=== PATIENT | male | born 1990 | race Caucasian/White ===

== ENCOUNTER 2018-11-28 19:20 | Inpatient (IN) | payer MEDICAID ==
[~2018-11-28] VITALS: Ht 180.3 cm; Wt 90.7 kg
[2018-11-28 19:26] VITALS: BP_SYST 160
[2018-11-28] MEDS ORDERED: LIDOCAINE/PRILOCAINE 5 GM CREAM (EMLA) TP ONE (19:45)
[2018-11-28] MEDS ORDERED: IBUPROFEN 800 MG TABLET PO ONE (19:45)
[2018-11-28] MEDS ORDERED: LIDOCAINE 1% 10 MG/ML, 20 ML MDV INJ ONE (19:45)
[2018-11-28] MEDS ORDERED: SODIUM BICARBONATE 8.4% VIAL 50 MEQ/50 ML VIAL INJ ONE (19:45)
[2018-11-28] MEDS ORDERED: VANCOMYCIN HCL 1,000 MG in NS 250 ML IV ONE (20:30)
[2018-11-28] MEDS ORDERED: VANCOMYCIN HCL 1000 MG/VIAL IV ONE (21:15)
[2018-11-28 21:23] LABS: BASOPHILS % (AUTO) 0.6 % (0.0-2.0); EOSINOPHILS # (AUTO) 0.3 K/uL (0.0-0.4); EOSINOPHILS % (AUTO) 3.4 % (0.0-4.0); HEMATOCRIT 39.4 % (36-54); HEMOGLOBIN 13.3 g/dL (14.0-18.0); LYMPHOCYTES # (AUTO) 1.6 K/uL (1.0-5.5); LYMPHOCYTES % (AUTO) 20.8 % (20.5-51.5); MEAN CORPUSCULAR HEMOGLOBIN 28 pg (27-31); MEAN CORPUSCULAR HGB CONC 34 % (32-36); MEAN CORPUSCULAR VOLUME 84 fL (79.0-98.0); MONOCYTES # (AUTO) 0.8 K/uL (0.0-1.0); MONOCYTES % (AUTO) 9.6 % (1.7-9.3); NEUTROPHILS # (AUTO) 5.2 K/uL (1.8-7.7); NEUTROPHILS % (AUTO) 65.6 % (40.0-70.0); PLATELET COUNT (AUTO) 315 K/uL (130-430); RED BLOOD CELL COUNT(AUTO) 4.71 MIL/uL (4.2-6.2); RED CELL DISTRIBUTION WIDTH 11.6 % (9.0-15.0); WHITE BLOOD COUNT (AUTO) 7.9 K/uL (4.8-10.8)
[2018-11-28 21:29] LABS: CALCIUM 9.5 mg/dL (8.4-11.0); CREATININE 1.47 mg/dL (0.55-1.30); POTASSIUM 3.8 mmol/L (3.5-5.1)
[2018-11-28] MEDS ORDERED: PIPERACILLIN/TAZO 3.375 GM in NS 50 ML IV ONE (21:30)
[2018-11-28 21:35] LABS: ALBUMIN 3.3 g/dL (3.4-4.8); TOTAL BILIRUBIN 0.6 mg/dL (0.0-1.0)
[2018-11-28] MEDS ORDERED: PIPERACILLIN/TAZOBACTAM 3.375 GM/VIAL (ZOSYN) IV ONE (21:56)
[2018-11-28] MEDS ORDERED: IBUPROFEN 400 MG TABLET PO PRN (22:00)
[2018-11-28] MEDS ORDERED: ACETAMINOPHEN 325 MG TABLET PO PRN (22:00)
[2018-11-28] MEDS ORDERED: cloNIDine HCL 0.1 MG TABLET PO PRN (22:00)
[2018-11-28] MEDS ORDERED: HYDROcodone/ACETAMIN 5-325 MG TAB (NORCO/ VICODIN) PO PRN (22:00)
[2018-11-28 22:46] VITALS: BP_SYST 158
[2018-11-28] MEDS ORDERED: CEFAZOLIN 1 GM IVPB PREMIX 50 ML IV ONE (22:59)
[2018-11-28] MEDS ORDERED: CLINDAMYCIN 600 mg/50mL D5W 100 ML IV ONE (23:00)
[2018-11-28] MEDS: FAMOTIDINE 20 MG TABLET PO SCH (23:37)
[2018-11-28] MEDS: HYDROcodone/ACETAMIN 10-325 MG TAB PO PRN (23:38)
[2018-11-28] MEDS: CLINDAMYCIN 600 mg/50mL D5W 50 ML IV SCH (23:38)
[2018-11-28] MEDS: CEFAZOLIN 1 GM IVPB PREMIX 50 ML IV SCH (23:39)
[2018-11-29 01:07] VITALS: BP_SYST 155
[2018-11-29] MEDS ORDERED: CEFAZOLIN 1 GM IVPB PREMIX 50 ML IV ONE (02:49)
[2018-11-29] MEDS: CEFAZOLIN 1 GM IVPB PREMIX 50 ML IV SCH ×3 (06:03→22:08)
[2018-11-29] MEDS: CLINDAMYCIN 600 mg/50mL D5W 50 ML IV SCH ×4 (06:04→23:38)
[2018-11-29 08:00] VITALS: BP_SYST 121
[2018-11-29] MEDS: LACTOBACILLUS RHAMNOSUS GG 1 CAP CAPSULE PO SCH ×2 (08:58→20:26)
[2018-11-29] MEDS: FAMOTIDINE 20 MG TABLET PO SCH ×2 (08:58→20:26)
[2018-11-29] MEDS: HYDROcodone/ACETAMIN 10-325 MG TAB PO PRN ×3 (08:58→20:27)
[2018-11-29 11:23] VITALS: BP_SYST 112
[2018-11-29 15:42] VITALS: BP_SYST 120
[2018-11-29 20:00] VITALS: BP_SYST 141
[2018-11-30 01:08] VITALS: BP_SYST 110
[2018-11-30] MEDS: CEFAZOLIN 1 GM IVPB PREMIX 50 ML IV SCH ×3 (05:33→21:44)
[2018-11-30] MEDS: CLINDAMYCIN 600 mg/50mL D5W 50 ML IV SCH ×3 (06:25→17:38)
[2018-11-30 07:11] LABS: BASOPHILS # (AUTO) 0.1 K/uL (0.0-0.2); EOSINOPHILS # (AUTO) 0.4 K/uL (0.0-0.4); EOSINOPHILS % (AUTO) 5.3 % (0.0-4.0); HEMATOCRIT 39.8 % (36-54); HEMOGLOBIN 13.1 g/dL (14.0-18.0); LYMPHOCYTES # (AUTO) 2.8 K/uL (1.0-5.5); LYMPHOCYTES % (AUTO) 39.5 % (20.5-51.5); MEAN CORPUSCULAR HEMOGLOBIN 28 pg (27-31); MEAN CORPUSCULAR HGB CONC 33 % (32-36); MEAN CORPUSCULAR VOLUME 84 fL (79.0-98.0); MONOCYTES # (AUTO) 0.7 K/uL (0.0-1.0); MONOCYTES % (AUTO) 9.5 % (1.7-9.3); NEUTROPHILS # (AUTO) 3.1 K/uL (1.8-7.7); NEUTROPHILS % (AUTO) 44.7 % (40.0-70.0); PLATELET COUNT (AUTO) 347 K/uL (130-430); RED BLOOD CELL COUNT(AUTO) 4.73 MIL/uL (4.2-6.2); RED CELL DISTRIBUTION WIDTH 11.4 % (9.0-15.0); WHITE BLOOD COUNT (AUTO) 7.1 K/uL (4.8-10.8)
[2018-11-30 07:25] LABS: CALCIUM 8.9 mg/dL (8.4-11.0); CREATININE 1.44 mg/dL (0.55-1.30); POTASSIUM 4.6 mmol/L (3.5-5.1)
[2018-11-30 08:00] VITALS: BP_SYST 135
[2018-11-30] MEDS: FAMOTIDINE 20 MG TABLET PO SCH ×2 (08:53→20:26)
[2018-11-30] MEDS: LACTOBACILLUS RHAMNOSUS GG 1 CAP CAPSULE PO SCH ×2 (08:53→20:26)
[2018-11-30] MEDS: HYDROcodone/ACETAMIN 10-325 MG TAB PO PRN ×3 (11:56→21:44)
[2018-11-30 12:34] VITALS: BP_SYST 145
[2018-11-30 17:44] VITALS: BP_SYST 131
[2018-11-30 20:11] VITALS: BP_SYST 120
[2018-12-01 00:12] VITALS: BP_SYST 125
[2018-12-01] MEDS: CLINDAMYCIN 600 mg/50mL D5W 50 ML IV SCH ×4 (00:33→17:12)
[2018-12-01] MEDS: CEFAZOLIN 1 GM IVPB PREMIX 50 ML IV SCH ×2 (06:46→13:57)
[2018-12-01] MEDS: HYDROcodone/ACETAMIN 10-325 MG TAB PO PRN ×3 (06:48→17:12)
[2018-12-01] MEDS: LACTOBACILLUS RHAMNOSUS GG 1 CAP CAPSULE PO SCH (08:19)
[2018-12-01] MEDS: FAMOTIDINE 20 MG TABLET PO SCH (08:19)
[2018-12-01 08:22] VITALS: BP_SYST 132
[2018-12-01 14:38] VITALS: BP_SYST 131
[2018-12-01 17:16] VITALS: BP_SYST 123
[2018-12-01 17:23] VITALS: BP_SYST 123
[2018-12-01] MEDS ORDERED: CEPH250C PO (17:52)
[2018-12-01] MEDS ORDERED: CLIN300C11 PO (17:52)
[2018-12-01] MEDS ORDERED: L.RH1CAP PO (17:52)
== END 2018-12-01 18:53 | disposition home or self-care (01) | DRG 383 ==
LOC: SED 19:20 → SMU 21:40
PROVIDERS: ADMIT Internal Medicine; ATTEND Internal Medicine
PROC: 0H91XZZ Drainage of Face Skin, External Approach (ICD-10-PCS; principal; 2018-11-28)
DX: L02.01 Cutaneous abscess of face (principal); F17.210 Nicotine dependence, cigarettes, uncomplicated; L01.00 Impetigo, unspecified; L03.211 Cellulitis of face
CPT/HCPCS: 36415; 76536-TC; 80048; 80053; 83605; 85025; 87040-TC; 87070-TC; 87186-TC; 96365; 99285; J0690; J2543; J3370; J3490; J7040; J7050